=== PATIENT | female | born 1995 | race African-American/Black ===

== ENCOUNTER 2023-10-10 10:59 | Emergency (ER) | payer SELFPAY ==
[~2023-10-10] VITALS: Ht 162.6 cm; Wt 90.7 kg
[2023-10-10] MEDS ORDERED: GABAPENTIN (11:05)
[2023-10-10] MEDS ORDERED: SERT50TA14 (11:05)
[2023-10-10] MEDS ORDERED: WELLBUTRIN (11:05)
[2023-10-10 11:29] LABS: BASOPHILS % (AUTO) 0.3 % (0.0-2.0); EOSINOPHILS # (AUTO) 0.3 K/uL (0.0-0.7); EOSINOPHILS % (AUTO) 3.1 % (0.0-7.0); HEMOGLOBIN 13.3 g/dL (10.9-14.3); LYMPHOCYTES # (AUTO) 3.2 K/uL (0.8-4.8); LYMPHOCYTES % (AUTO) 34.1 % (20.5-51.5); MEAN CORPUSCULAR HEMOGLOBIN 29.7 uug (24.7-32.8); MEAN CORPUSCULAR HGB CONC 33 g/dL (32.3-35.6); MEAN CORPUSCULAR VOLUME 89.6 fL (75.5-95.3); MONOCYTES # (AUTO) 0.5 K/uL (0.1-1.30); MONOCYTES % (AUTO) 5.2 % (0.0-11.0); NEUTROPHILS # (AUTO) 5.4 K/uL (1.8-8.9); NEUTROPHILS % (AUTO) 57.3 % (38.5-71.5); PLATELET COUNT (AUTO) 339 K/uL (179-408); RED BLOOD CELL COUNT(AUTO) 4.47 MIL/uL (3.63-4.92); RED CELL DISTRIBUTION WIDTH 13.9 % (12.3-17.7); WHITE BLOOD COUNT (AUTO) 9.5 K/uL (3.8-11.8)
[2023-10-10] MEDS ORDERED: FENTANYL CITRATE 100 MCG/2 ML AMPUL ONE (11:31)
[2023-10-10 11:36] LABS: CALCIUM 9.4 mg/dL (8.5-10.1); POTASSIUM 3.8 mmol/L (3.5-5.1)
[2023-10-10] MEDS: FENTANYL CITRATE 100 MCG/2 ML AMPUL IV ONE (11:41)
[2023-10-10 11:42] LABS: ALBUMIN 3.7 g/dL (3.4-5.0); BILIRUBIN,DIRECT 0.1 mg/dL (0.0-0.2); BILIRUBIN,TOTAL 0.4 mg/dL (0.2-1.0); TOTAL PROTEIN, SERUM 8.2 g/dL (6.4-8.2)
[2023-10-10 11:52] LABS: DIFFERENTIAL COMMENT 1
[2023-10-10] MEDS ORDERED: SWABABLE VALVE TRANSFER SET EA MC ONE (12:42)
[2023-10-10] MEDS ORDERED: IOHEXOL 350 100 ML INFUS..BTL ONE (12:42)
[2023-10-10] MEDS ORDERED: IV NORMAL SALINE 250 ML IV ONE (12:42)
[2023-10-10] MEDS ORDERED: diphenhydrAMINE 50 MG/1 ML VIAL ONE (13:07)
[2023-10-10] MEDS: diphenhydrAMINE 50 MG/1 ML VIAL IV ONE (13:11)
[2023-10-10] MEDS ORDERED: OXYC-133 PO (14:01)
[2023-10-10 14:31] VITALS: BP 105/82; O2SAT 93
== END 2023-10-10 14:34 | disposition home or self-care (01) ==
LOC: ER 10:59
DX: M23.92 Unspecified internal derangement of left knee (principal); R10.2 Pelvic and perineal pain; F32.A Depression, unspecified; Z79.891 Long term (current) use of opiate analgesic; Z79.899 Other long term (current) drug therapy
CPT/HCPCS: 29505; 36415; 73560; 73706; 80048; 80076; 84702; 85025; 85730; 96374; 96375; 99285; J1200; J3010; Q9967; A4606; A4663